=== PATIENT | male | born 1970 | race Caucasian/White ===

== ENCOUNTER 2021-01-08 15:11 | Outpatient (CLI) | payer OTHER, SELFPAY ==
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
== END 2021-01-08 15:12 | disposition home or self-care (01) ==
LOC: CHSIMG 15:15
PROVIDERS: PCP Family Medicine; Visit Provider Family Medicine
DX: M79.641 Pain in right hand (principal); V49.9XXD Car occupant (driver) (passenger) injured in unspecified traffic accident, subsequent encounter
CPT/HCPCS: 73130